=== PATIENT | male | born 1970 | race Caucasian/White ===

== ENCOUNTER 2017-03-30 12:05 | Emergency (ER) | payer OTHER ==
[2017-03-30 12:12] VITALS: O2SAT 98
--- NOTE | 2017-03-30 12:42 | CPEKG ---
Heart Rate: 74 RR Interval: 811 P-R Interval: 156 QRSD Interval: 88 QT Interval: 376 QTC Interval: 418 P [place]: 43 QRS [place]: 237 T Wave [place]: 46 EKG Severity - BORDERLINE ECG - EKG Impression: SINUS RHYTHM EKG Impression: MARKEDLY POSTERIOR QRS AXIS Electronically Signed By: Heath Mayfield 30-Mar-2017 15:51:02
--- NOTE | 2017-03-30 12:48 | EDPHY ---
H & P Time Seen by Provider: 03/30/17 12:47 HPI/ROS: Chief complaint. Electrical shock HPI. 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 He was working in a ceiling and touched a 277 volt power line. He was advised to come to the emergency department today to be checked out. He has no symptoms. He touched on his left arm and has a small abrasion to that area. Otherwise no headache, change in vision, chest discomfort, trouble breathing, abdominal pain. No other injuries that might suggest an exit wound. He was not thrown down and there was no trauma. Again the patient is completely without symptoms. ROS Constitutional. no fever/chills, no weakness Eyes. no problems with vision ENT. no sore throat, no nasal drainage Cardiovascular. no chest pain Respiratory. no shortness of breath, no cough Abdominal. no abdominal pain, no nausea/vomiting, no diarrhea . no problems urinating MS. no calf pain/swelling, no neck/back pain, no joint pain Skin. Electrical burn left arm Lymph. no swollen glands Neuro. no headache, no dizziness, no difficulty walking or with speech Past Medical/Surgical History: Denies past medical history Social History: Single, daily smoker, no alcohol Smoking Status: Heavy smoker Physical Exam: General Appearance: Alert well-developed male no distress vital signs stable Eyes: Pupils equal and round no pallor or injection. ENT, Mouth: Mucous membranes are moist. Respiratory: There are no retractions, lungs are clear to auscultation. Cardiovascular: Regular rate and rhythm. Gastrointestinal: Abdomen is soft and nontender, no masses, bowel sounds normal. Neurological: Awake and alert, sensory and motor exams grossly normal. Skin: 1 cm abrasion left forearm. No evidence for foreign body. No evidence for infection Musculoskeletal: Neck is supple nontender. Extremities symmetrical, full range of motion. Psychiatric: Patient is oriented X 3, there is no agitation. Constitutional: Initial Vital Signs Temperature (C) 36.6 C 03/30/17 12:09 Heart Rate 81 03/30/17 12:09 Respiratory Rate 163 H 03/30/17 12:09 Blood Pressure 128/84 H 03/30/17 12:09 O2 Sat (%) 98 03/30/17 12:09 O2 Delivery Mode Room Air Allergies/Adverse Reactions: Sulfa (Sulfonamide Antibiotics) Allergy (Verified 03/30/17 12:09) Home Medications: Medication Instructions Recorded NK [No Known Home Meds] 03/30/17 Medical Decision Making - Diagnostics EKG Interpretation: EKG interpreted by me shows normal sinus rhythm with normal interval. There is left axis deviation. QRS is normal there is no significant ST elevation or depression. There is no arrhythmia. The rate is 80 ED Course/Re-evaluation: Re-evaluation patient is stable. He and I discussed treatment plan including criteria for return importance of follow-up further evaluation. He expresses understanding and agreement Differential Diagnosis: Electrical shock yesterday from 277 volt power line. I considered acute coronary syndrome, arrhythmia, rhabdomyolysis, burn. I believe the voltage is low enough to not be concerned about significant injury. Departure - Departure Disposition: Home, Routine, Self-Care Clinical Impression: Electrical shock of hand Qualifiers: Encounter type: initial encounter Qualified Code(s): T75.4XXA - Electrocution, initial encounter Condition: Good Instructions: Electrical Funk in Adults (ED) Additional Instructions: Antibiotic ointment twice daily on the burn hailee. Return for chest discomfort or trouble breathing. Activity as tolerated.
[2017-03-30 13:21] VITALS: BP 145/80; PULSE 76; RESP 16; TEMP 97.7
--- NOTE | 2017-04-01 10:59 | CPEKG ---
Heart Rate: 80 RR Interval: 750 P-R Interval: 152 QRSD Interval: 92 QT Interval: 380 QTC Interval: 439 P [place]: 36 QRS [place]: 232 T Wave [place]: 41 EKG Severity - BORDERLINE ECG - EKG Impression: SINUS RHYTHM EKG Impression: MARKEDLY POSTERIOR QRS AXIS Electronically Signed By: Mark Ramirez 01-Apr-2017 11:24:34
== END 2017-03-30 13:21 | disposition home or self-care (01) ==
DX: T75.4XXA Electrocution, initial encounter (principal); F17.200 Nicotine dependence, unspecified, uncomplicated